=== PATIENT | female | born 1985 | race Caucasian/White ===

== ENCOUNTER 2018-04-25 10:47 | Emergency (ER) | payer OTHER ==
[~2018-04-25] VITALS: Ht 172.7 cm; Wt 159.1 kg
[2018-04-25] MEDS ORDERED: NS 1,000 ML IV ONE (11:00)
[2018-04-25] MEDS ORDERED: FAMOTIDINE IV BAG 20 MG in APPROPRIATE DILUENT 1 EA IV ONE (11:00)
[2018-04-25] MEDS ORDERED: PRED20TA PO (12:06)
[2018-04-25] MEDS ORDERED: PEPC1TAB5 PO (12:06)
[2018-04-25] MEDS ORDERED: BENA25CA4 PO (12:07)
[2018-04-25 12:20] VITALS: BP 130/65
== END 2018-04-25 12:27 | disposition home or self-care (01) ==
LOC: M ED 10:47 → EDBD 10:47 → M ED 12:27
DX: R21 Rash and other nonspecific skin eruption (principal); T78.49XA Other allergy, initial encounter; X58.XXXA Exposure to other specified factors, initial encounter; Y92.89 Other specified places as the place of occurrence of the external cause; Z79.899 Other long term (current) drug therapy; Z88.0 Allergy status to penicillin; Z91.048 Other nonmedicinal substance allergy status

== ENCOUNTER → 2018-07-19 | Outpatient (CLI) | payer OTHER ==
[~2018-07-19] MED LIST: BENA25CA4 PO; PEPC1TAB5 PO; PRED20TA PO
--- NOTE | 2018-07-19 16:04 | REP ---
Right foot four views: There is a nondisplaced fracture at the base of the fifth digit proximal phalange shaft. There is no dislocation. Mineralization and joint spaces otherwise are unremarkable. No calcifications or foreign bodies. Electronically Signed by Teo Jones MD 07/19/2018 03:55 P
== END ==
LOC: M LRY 15:35
PROVIDERS: ATTEND Nurse Practitioner Family
DX: S99.921A Unspecified injury of right foot, initial encounter (principal); W18.30XA Fall on same level, unspecified, initial encounter; Y92.009 Unspecified place in unspecified non-institutional (private) residence as the place of occurrence of the external cause

== ENCOUNTER → 2019-05-31 | Outpatient (CLI) | payer OTHER ==
--- NOTE | 2019-05-31 10:13 | REP ---
PA and lateral chest: There are no comparisons. The lung blackwell are clear. The cardiac size is normal. The tadeo, mediastinum, and skeletal structures are unremarkable. Impression: Negative PA and lateral chest. Electronically Signed by Teo Jones MD 05/31/2019 10:04 A
== END ==
LOC: M LRY 09:44
PROVIDERS: ATTEND Nurse Practitioner Family
DX: R09.89 Other specified symptoms and signs involving the circulatory and respiratory systems (principal)
CPT/HCPCS: 71046; G0463

== ENCOUNTER 2021-01-27 14:35 | Inpatient (IN) | payer OTHER ==
[~2021-01-27] VITALS: Ht 177.8 cm; Wt 147.3 kg
--- OUTSIDE RECORDS SUMMARY | 2021-01-27 14:39 | CCD ---
Author Author [facility] Organization [facility] Address Unknown Phone Unavailable Care Team Providers Care Phd Internship Name Role Phone Elma WALLACE CONVERSION DEVELOPER PRATEEK Unavailable [phone] MADISON, Dalton. CONVERSION DEVELOPER PRATEEK Unavailable [phone] MADISON, Dalton. CONVERSION DEVELOPER PRATEEK Unavailable [phone] MADISON, Dalton. CONVERSION DEVELOPER PRATEEK Unavailable [phone] MADISON, Dalton. CONVERSION DEVELOPER PRATEEK Unavailable [phone] MADISON, Dalton. CONVERSION DEVELOPER PRATEEK Unavailable [phone] MADISON, Dalton. CONVERSION DEVELOPER PRATEEK Unavailable [phone] MADISON, Dalton. CONVERSION DEVELOPER PRATEEK Unavailable [phone] MADISON, Dalton. CONVERSION DEVELOPER PRATEEK Unavailable [phone] MADISON, A. CONVERSION DEVELOPER PRATEEK Unavailable [phone] MADISON, Dalton. CONVERSION DEVELOPER PRATEEK Unavailable [phone] MADISON, Dalton. CONVERSION DEVELOPER PRATEEK Unavailable [phone] MADISON, Dalton. CONVERSION DEVELOPER PRATEEK Unavailable [phone] MADISON, Dalton. CONVERSION DEVELOPER PRATEEK Unavailable [phone] MADISON, Dalton. CONVERSION DEVELOPER PRATEEK Unavailable [phone] Re-disclosure Warning The records that you are about to access may contain information from federally-assisted alcohol or drug abuse programs. If such information is present, then the following federally mandated warning applies: This information has been disclosed to you from records protected by federal confidentiality rules (42 CFR part 2). The federal rules prohibit you from making any further disclosure of this information unless further disclosure is expressly permitted by the written consent of the person to whom it pertains or as otherwise permitted by 42 CFR part 2. A general authorization for the release of medical or other information is NOT sufficient for this purpose. The Federal rules restrict any use of the information to criminally investigate or prosecute any alcohol or drug abuse patient.The records that you are about to access may contain highly sensitive health information, the redisclosure of which is protected by Article 27-F of the [facility] Public Health law. If you continue you may have access to information: Regarding HIV / AIDS; Provided by facilities licensed or operated by the [facility] Office of Mental Health; or Provided by the [facility] Office for People With Developmental Disabilities. If such information is present, then the following [facility] mandated warning applies: This information has been disclosed to you from confidential records which are protected by state law. State law prohibits you from making any further disclosure of this information without the specific written consent of the person to whom it pertains, or as otherwise permitted by law. Any unauthorized further disclosure in violation of state law may result in a fine or mcfp sentence or both. A general authorization for the release of medical or other information is NOT sufficient authorization for further disc losure. Encounters Encounter Providers Location Date Indications Data Source(s ) Outpatient Attender: PRATEEK WALLACE 01/04 08:58:52 AM EDT - 01/13/2021 10:00:22 AM EDT [facility] ([facility] ) Medications No Information Insurance Providers Payer name Policy type / Coverage type Policy ID Covered alliance party ID Covered alliance party's relationship to haskins Policy Haskins Plan Information / [id number] Spouse [id number] [facility] [id number] [facility] [id number] SELF PAY ONLY SP ANSI-Not a Secondary Insurance [id number] ANSI-Not a Secondary Insurance [id number] [employer] - O/P [id number] 01 [id number] [facility] [id number] [facility] [id number] ANSI-Not a Secondary Insurance [id number] Problems, Conditions, and Diagnoses No Information Surgeries/Procedures No Information Results ID Date Data Source [id number] 01/13/2021 09:15:00 AM EDT KEVIN Name Value Range Interpretation Code Description Data Annelise rce(s) Supporting Document(s) SARS-CoV-2 RNA Resp Ql KASSANDRA+probe NOT DETECTED [facility] This lab was ordered by JOSE tovar and reported by JOSE Sadler. Procedure Social History No Information
[2021-01-27] MEDS ORDERED: KETOROLAC 30 MG/ML 1ML VIAL IV ONE ×2 (14:50→16:45)
[2021-01-27 15:14] LABS: BASO % 0.1 % (0.0-1.0); EOS # 0.1 10^3/uL (0.0-0.5); HEMATOCRIT 38.3 % (36.0-47.0); HEMOGLOBIN 12.5 g/dl (12.0-15.5); LYMPH % 8.1 % (24.0-44.0); MEAN CORPUSCULAR HEMOGLOBIN 29.1 pg (27.0-33.0); MEAN CORPUSCULAR HGB CONC 32.6 g/dl (32.0-36.5); MEAN CORPUSCULAR VOLUME 89.3 fl (80.0-96.0); MONO # 1.4 10^3/uL (0.0-0.8); MONO % 11.8 % (2.0-8.0); NEUTROPHILS # 9.4 10^3/uL (1.5-8.5); NEUTROPHILS % 78.7 % (36.0-66.0); PLATELET COUNT, AUTOMATED 188 10^3/uL (150-450); RED BLOOD COUNT 4.29 10^6/uL (4.00-5.40)
[2021-01-27] MEDS ORDERED: ISOVUE-370 76% 100ML VIAL As Ordered ONE (15:25)
[2021-01-27 15:32] LABS: ERYTHROCYTE SEDIMENTATION RATE 37 mm/hr (0-20)
--- OUTSIDE RECORDS SUMMARY | 2021-01-27 15:39 | CCD ---
Author Author [facility] Organization [facility] Address Unknown Phone Unavailable Care Team Providers Care Fisheries Technician Name Role Phone Elma WALLACE MANGANESE HEATER PRATEEK Unavailable [phone] MADISON, Dalton. MANGANESE HEATER PRATEEK Unavailable [phone] MADISON, Dalton. MANGANESE HEATER PRATEEK Unavailable [phone] MADISON, Dalton. MANGANESE HEATER PRATEEK Unavailable [phone] MADISON, Dalton. MANGANESE HEATER PRATEEK Unavailable [phone] MADISON, Dalton. MANGANESE HEATER PRATEEK Unavailable [phone] MADISON, Dalton. MANGANESE HEATER PRATEEK Unavailable [phone] AMDISON, Dalton. MANGANESE HEATER PRATEEK Unavailable [phone] MADISON, Dalton. MANGANESE HEATER PRATEEK Unavailable [phone] MADISON, A. MANGANESE HEATER PRATEEK Unavailable [phone] MADISON, Dalton. MANGANESE HEATER PRATEEK Unavailable [phone] MADISON, Dalton. MANGANESE HEATER PRATEEK Unavailable [phone] MADISON, Dalton. MANGANESE HEATER PRATEEK Unavailable [phone] MADISON, Dalton. MANGANESE HEATER PRATEEK Unavailable [phone] MADISON, Dalton. MANGANESE HEATER PRATEEK Unavailable [phone] Re-disclosure Warning The [...] is protected by Article 27-F of the [facility] Public Health law. If you continue you may have access to information: Regarding HIV / AIDS; Provided by facilities licensed or operated by the [facility] Office of Mental Health; or Provided by the [facility] Office for People With Developmental Disabilities. If such information is present, then the following [facility] mandated warning applies: This information has been [...] law may result in a fine or nursing home sentence or both. A general authorization for [...] type / Coverage type Policy ID Covered republican ID Covered republican's relationship to haskins Policy Haskins Plan Information / [id number] Spouse [id number] [facility] [id number] [facility] [id number] SELF PAY ONLY SP ANSI-Not a Secondary Insurance [id number] ANSI-Not a Secondary Insurance [id number] [employer] - O/P [id number] 01 [id number] [facility] [id number] [facility] [id number] ANSI-Not a Secondary Insurance [id number] Problems, Conditions, and Diagnoses No Information Surgeries/Procedures No Information Results ID Date Data Source [id number] 01/13/2021 09:15:00 AM EDT KEVIN Name Value Range Interpretation Code Description Data Annelise rce(s) Supporting Document(s) SARS-CoV-2 RNA Resp Ql KASSANDRA+probe NOT DETECTED [facility] This lab was ordered by JOSE tovar and reported by JOSE Sadler. Procedure Social History No Information
[2021-01-27 15:48] LABS: ALBUMIN 3.1 GM/DL (3.2-5.2); ALT/SGPT 97 U/L (12-78); BILIRUBIN,DIRECT 0.6 MG/DL (0.0-0.2); BILIRUBIN,TOTAL 1.2 MG/DL (0.2-1.0); LIPASE 54 U/L (73-393); NT-PRO BNP 254 PG/ML (<125); THYROID STIMULATING HORMONE 0.496 uIU/ML (0.358-3.740)
--- NOTE | 2021-01-27 15:55 | REP ---
INDICATION: CHEST PAIN. COMPARISON: PA and lateral chest, 05/31/2019. TECHNIQUE: Upright AP portable chest image was obtained. FINDINGS: There is cardiomegaly, pulmonary venous hypertension and pulmonary interstitial edema consistent with mild congestive heart failure. There are no pleural effusions. IMPRESSION: Mild congestive heart failure. <Electronically signed by Kishore Li > 01/27/21 [id number]
--- NOTE | 2021-01-27 16:22 | REP ---
INDICATION: CP. COMPARISON: None. TECHNIQUE: Imaging protocol: CT angiography of the chest with IV contrast. Contiguous 3 mm thick axial projection images were obtained through the chest. 2D sagittal and coronal reconstructions were performed. Radiation optimization: All CT scans at this facility use at least one of these dose optimization techniques: automated exposure control; mA and/or kV adjustment per patient size (includes targeted exams where dose is matched to clinical indication); or iterative reconstruction. Contrast: 75 cc of Isovue 370 intravenous FINDINGS: Lower neck: There is a coarse calcification in the left thyroid lobe. There is no supraclavicular lymphadenopathy. Mediastinum: There are few, not pathologically enlarged, mediastinal lymph nodes. Heart/thoracic aorta/pulmonary arterial tree: The heart size is upper limits of normal. There is a large pericardial effusion. There is minimal calcific vascular disease of the thoracic aorta. There is no evidence of thoracic aortic dissection or thoracic aortic aneurysm. There is no evidence of pulmonary emboli. Upper abdomen: The spleen is enlarged measuring 14.4 cm in axial dimension. Thoracic esophagus: Normal. Chest wall and axilla: The breast soft tissues of the chest wall appear unremarkable. There is no axillary lymphadenopathy. There is mild multilevel degenerative disc disease of the thoracic spine with mild dextroscoliosis. Lung parenchyma: There is linear atelectasis or scarring in the posterior basilar segment of the lower lobe of the right lung the posterior basilar, lateral basilar and anteromedial basilar segments of the lower lobe of the left lung and the inferior segment of the lingula. There are no pleural effusions. IMPRESSION: 1. Multifocal atelectasis or scarring in both lower lobes and in the lingula. 2. No evidence of pulmonary emboli. 3. Mild splenomegaly. 4. Thoracic degenerative disc disease with dextroscoliosis. 5. Other findings as noted. <Electronically signed by Kishore Li > 01/27/21 [id number]
[2021-01-27] MEDS ORDERED: ACETAMINOPHEN 500 MG TAB PO ONE (17:30)
--- NOTE | 2021-01-27 17:40 | REP ---
INDICATION: elevated LFT'S/pain. COMPARISON: None. TECHNIQUE: Multiple ultrasound images of the abdomen were obtained. FINDINGS: The liver is normal in size and echogenicity. The gallbladder is normal. The common bile duct measures 4 mm in diameter. Limited images of the pancreas are unremarkable. The right kidney measures 12.9 x 5.9 x 4.5 cm. The renal parenchymal echogenicity is normal. There are no focal abnormalities. There is no evidence of hydronephrosis. IMPRESSION: Normal right upper quadrant ultrasound. <Electronically signed by Kishore Li > 01/27/21 [id number]
--- NOTE | 2021-01-27 17:51 | ECGEPIP ---
[facility] - ED Test Date: 2021-01-27 Pat Name: EAN TRISTAN Department: Room: - Gender: Female Taxi Servicer: ASAD : 1985 Requested By: Margo Wood Order Number: [id number] Reading MD: Margo Wood Measurements Intervals Edward Rate: 114 P: 45 [place]: 118 QRS: 34 QRSD: 88 T: 31 QT: 300 QTc: 413 Interpretive Statements Sinus tachycardia baseline artifact may affect interpretation NSTTW abnormalities No prior Electronically Signed on 01-27-2021 17:51:25 EDT by Margo Wood
[2021-01-27] MEDS ORDERED: cefTRIAXone SOD 2 GM in D5W MINI-BAG PLUS 50 ML IV ONE (18:10)
[2021-01-27] MEDS ORDERED: VANCOMYCIN HCL 2,000 MG in D5W 500 ML IV ONE (18:10)
[2021-01-27 18:18] LABS: RSV AMPLIFICATION NEGATIVE (NEGATIVE)
[2021-01-27] MEDS ORDERED: VANCOMYCIN HCL 1,000 MG, VIAL MATE ADAPTER 1 EACH in NS 250 ML IV ONE ×3 (18:20→22:00)
[2021-01-27] MEDS ORDERED: D31000TA2 PO (18:37)
[2021-01-27] MEDS ORDERED: B-12100010 PO (18:37)
[2021-01-27] MEDS ORDERED: CALC600T61 PO (18:37)
[2021-01-27] MEDS ORDERED: HOME MED LIST COMPLETE! XX SCH (18:40)
[2021-01-27] MEDS ORDERED: BISACODYL 10 MG SUPP PR PRN (20:05)
[2021-01-27] MEDS ORDERED: ACETAMINOPHEN TAB 650MG DOSE (2X325MG) PO PRN (20:05)
[2021-01-27] MEDS ORDERED: LEVALBUTEROL 1.25 MG/0.5 ML CONCENTRATE NEB NEB PRN (20:05)
[2021-01-27] MEDS ORDERED: NORCO, ANEXSIA 5/325MG TABLET (HYDROcodone/ACETAMINOPHEN) PO PRN (20:05)
[2021-01-27] MEDS ORDERED: ONDANSETRON 4MG/2ML VIAL IV PRN (20:05)
[2021-01-27] MEDS ORDERED: COLCHICINE 0.6 MG TABLET PO ONE (20:05)
[2021-01-27] MEDS ORDERED: PERCOCET 5MG/325MG TAB PO PRN ×2 (20:05)
--- OUTSIDE RECORDS SUMMARY | 2021-01-27 20:37 | CCD ---
Author Author [facility] Organization [facility] Address Unknown Phone Unavailable Care Team Providers Care Chef Broiler Or Fry Name Role Phone Elma WALLACE ORDERING BOX OPERATOR PRATEEK Unavailable [phone] MADISON, Dalton. ORDERING BOX OPERATOR PRATEEK Unavailable [phone] MADISON, Dalton. ORDERING BOX OPERATOR PRATEEK Unavailable [phone] MADISON, Dalton. ORDERING BOX OPERATOR PRATEEK Unavailable [phone] MADISON, Dalton. ORDERING BOX OPERATOR PRATEEK Unavailable [phone] MADISON, Dalton. ORDERING BOX OPERATOR PRATEEK Unavailable [phone] MADISON, Dalton. ORDERING BOX OPERATOR PRATEEK Unavailable [phone] MADISON, Dalton. ORDERING BOX OPERATOR PRATEEK Unavailable [phone] MADISON, Dalton. ORDERING BOX OPERATOR PRATEEK Unavailable [phone] MADISON, A. ORDERING BOX OPERATOR PRATEEK Unavailable [phone] MADISON, Dalton. ORDERING BOX OPERATOR PRATEEK Unavailable [phone] MADISON, Dalton. ORDERING BOX OPERATOR PRATEEK Unavailable [phone] MADISON, Dalton. ORDERING BOX OPERATOR PRATEEK Unavailable [phone] MADISON, Dalton. ORDERING BOX OPERATOR PRATEEK Unavailable [phone] MADISON, Dalton. ORDERING BOX OPERATOR PRATEEK Unavailable [phone] Re-disclosure Warning The [...] is protected by Article 27-F of the [facility] Public Health law. If you continue you may have access to information: Regarding HIV / AIDS; Provided by facilities licensed or operated by the [facility] Office of Mental Health; or Provided by the [facility] Office for People With Developmental Disabilities. If such information is present, then the following [facility] mandated warning applies: This information has been [...] law may result in a fine or mcc sentence or both. A general authorization for [...] type / Coverage type Policy ID Covered democrat ID Covered democrat's relationship to haskins Policy Haskins Plan Information / [id number] Spouse [id number] [facility] [id number] [facility] [id number] SELF PAY ONLY SP ANSI-Not a Secondary Insurance [id number] ANSI-Not a Secondary Insurance [id number] [employer] - O/P [id number] [facility] [id number] [facility] [id number] ANSI-Not a Secondary Insurance [id number] Problems, Conditions, and Diagnoses No Information Surgeries/Procedures No Information Results ID Date Data Source [id number] 01/13/2021 09:15:00 AM EDT KEVIN Name Value Range Interpretation Code Description Data Annelise rce(s) Supporting Document(s) SARS-CoV-2 RNA Resp Ql KASSANDRA+probe NOT DETECTED [facility] This lab was ordered by JOSE tovar and reported by JOSE Sadler. Procedure Social History No Information
[2021-01-27 20:53] LABS: RHEUMATOID FACTOR QUANT < 10.0 IU/ML (<15.0)
[2021-01-27] MEDS: DOCUSATE SODIUM 100MG CAPSULE PO SCH (21:00)
[2021-01-27 21:05] VITALS: BP 131/76
--- NOTE | 2021-01-27 21:25 | ECHO ---
ECHOCARDIOGRAM DATE OF PROCEDURE: 01/27/2021 Age: 35 Gender: Female Height: 70 inches Weight: 298 pounds Body Surface Area: 2.47 m2 PATIENT LOCATION: Emergency room REFERRING PHYSICIAN: Margo Cotter M.D., Ankit Olivo M.D. and Panchito Sharpe M.D. INDICATION: Pericardial effusion. MEASUREMENTS: 2D Measurements: RV - 4.4 cm LV - 5.7 cm Septum 0.9 cm Posterior wall 0.9 cm Aortic root 3.1 cm LA - 4.4 cm LVEF 50%. Doppler Measurements: AV - 1.85 m/sec LVOT - 1.43 m/sec MV-E 104, A 85, EA ratio 1.2 Early mitral deceleration time 232 msec E prime medial 10 A prime medial 16 E prime lateral 10 Average E/E ratio 10.4/PCWP 14.8 mmHg PV - 1.35 m/sec Pulmonary artery acceleration time 60 msec PASP 54 mmHg IVC - 2.6 cm COMMENTS: Sinus tachycardia without intraventricular conduction disturbance. Somewhat challenging study in light of the patient's body habitus, but diagnostically useful information was still obtained. M-mode and 2-dimensional cardiography was performed with pulse, continuous wave, color flow and tissue Doppler studies. At least mildly dilated left ventricle with normal wall thickness and slight degree of global hypokinesis. At least mildly dilated left atrium with prolonged early mitral deceleration time, but normal filling pattern and current estimated mean left atrial pressure upper limits of normal. Mildly dilated right heart chambers with normal right ventricular free wall motion and Doppler sign of at least moderate pulmonary hypertension. Moderately dilated inferior vena cava (IVC) with absent respiratory collapse in keeping with an elevated central venous pressure. Normal aortic dimensions. Normal appearing and functioning valvular structures. No apparent intracardiac mass. Moderate size pericardial effusion measuring 0.8 cm with some diastolic inversion of the right atrial free wall, but no other cardiac chamber compression. Pulse Doppler study of left ventricular (LV) and right ventricular (RV) inflow tracts fail to demonstrate significant respiratory variation to suggest cardiac compression (no Doppler sign of increased ventricular interdependence). There was no pendular swinging of the heart. A preliminary report of this study was related to Dr. Olivo and Dr. Sharpe. The above features would not be consistent with decompensated cardiac compression, especially considering the patient is hypertensive. The diagnosis of cardiac tamponade is a clinical one with crucial feature being pulses paradox Greater than 10-12 mmHg. Close monitoring would still be advised. MTDD
--- NOTE | 2021-01-27 21:34 | HPEPDOC ---
[facility] Medical History & Physical Date of Admission Jan 27, 2021 Date of Service: Jan 27, 2021 History and Physical CHIEF COMPLAINT: Fever HISTORY OF PRESENT ILLNESS: 35F with obestiy presents because of a two days history of fever associated with chest pain. Says fever was 101 at home. She's tried ibuprofen and Tylenol which haven't helped. Chest pain is persistent substernal and radiates to her back. She's had similar pain in the past which she believes was inflammation helped with ibuprofen and rest. This feels different, its worsened by deep breaths and alleviated by change in position, leaning backwards sometimes makes it worse. She denies associated palpitations, denies any shortness of breath except some times when she lays down. Endorses fatigue. Denies any rash, night sweats, nausea, vomiting, hematuria. Denies knowing if she's had a strep infection in the past. Denies having any heart surgery, denies any IV drug use any point in the past. CT initially suggestive of large pericardial effusion, reviewed by CT surgery Dr Sharpe looks moderate. Stat echo was ordered in the ED read by Dr Kennedy confirms moderate effusion with no evidence of cardiac compression. Patient admitted to the PCU with presumed diagnosis of infective endocarditis/pericarditis until proven otherwise. She will undergo medical workup and management. PAST MEDICAL/SURGICAL HISTORY: Denies medical history Class 3 obesity tubal ligation SOCIAL HISTORY: Denies alcohol use Denies tobacco use Denies illicit drug use. Only history of drug use was cannabis when she was much younger. Denies IV drug use. 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 REVIEW OF SYSTEMS: 10 point review of systems complete all negative otherwise stated in HPI Constitutional: No sweating. weight loss ~ 100 pounds over past 2-3 years. Eyes: No eye pain or acute blurred vision HENT: No complaints of headache or sore throat Cadiovascular: per HPI Pulm: No SOB or cough Gastrointestinal: No N/V, no abdominal pain. Genitourinary: No dysuria or hematuria Musculoskeletal: No back pain or joint pain Skin: No rash or jaundice Neurological: No weakness. HOME MEDICATIONS: Please see below. PHYSICAL EXAMINATION: Constitutional: Awake and alert, in no apparent distress ENT: Sclera are clear. Mucosa is moist. Respiratory: Lungs CTA bilaterally. No respiratory distress. No use of accessory muscles. Cardiovascular: Rate 118 on monitor. Sounds regular. S1 and S2 are normal, no obvious murmur. EKG showing sinus tachycardia. Gastrointestinal: Abdomen is soft, non distended, non tender, BS present. Musculoskeletal: No lower extremity edema. RUE 5/5, LUE 5/5, BLE 5/5 Neurologic: No focal neurological deficit. Mental Status: A&O x3, normal affect Skin: Warm, dry, no petechiae, no splinter hemorrhages, no Janeway lesions or Osler nodes. LABORATORY DATA: See below. IMAGING: See chart MICROBIOLOGY: Please see below. ASSESSMENT/PLAN 35F with obestiy presents because of a two days history of fever associated with chest pain admitted for presumed diagnosis of infective endocarditis/pericarditis until proven otherwise. She will undergo medical workup and management. # Fever and chest pain; - etiology not yet known. presumed endocarditis / pericarditis until proven otherwise. - Treating for presumed endocarditis with IV Ceftriaxone and Vancomycin - scheduled IV ketorolac, colchicine to cover for pericarditis - Stat echo brief verbal read from Dr Kennedy showing no cardiac compression, moderate pleural effusion. Given findings discussed with CT surgery Dr Sharpe no need to acute surgical intervention tonight. Will monitor closely in PCU on tele. - Will probably need PEPE, depending on results of TTE once official report is back. - Will defer to day team to consult and discuss with ID Dr Gallardo once she's on service tomorrow - workup to investigate other etiologies; DISHA, rheumatoid factor. TSH wnl. ESR elevated 37. - IV zofran for n/v - yony tops and EKGs # DVT prophylaxis: heparin A Yousef Hospitalist Vital Signs Vital Signs Date Time Temp Pulse Resp B/P (MAP) Pulse Ox O2 Delivery O2 Flow Rate FiO2 01/27/21 20:22 100.3 114 16 188/84 (118) 96 Room Air Laboratory Data Labs 24H Laboratory Tests 2 01/27/21 15:02: Immature Granulocyte % (Auto) 0.3, Neutrophils (%) (Auto) 78.7H, Lymphocytes (%) (Auto) 8.1L, Monocytes (%) (Auto) 11.8H, Eosinophils (%) (Auto) 1.0, Basophils (%) (Auto) 0.1, Neutrophils # (Auto) 9.4H, Lymphocytes # (Auto) 1.0L, Monocytes # (Auto) 1.4H, Eosinophils # (Auto) 0.1, Basophils # (Auto) 0.0, Nucleated Red Blood Cells % (auto) 0.0, Erythrocyte Sedimentation Rate 37H, Total Bilirubin 1.2H, Direct Bilirubin 0.6H, Aspartate Amino Transf (AST/SGOT) 61H, Alanine Ami notransferase (ALT/SGPT) 97H, Alkaline Phosphatase 112, KP-Gor-E-Type Natriuretic Peptide 254H, Total Protein 7.0, Albumin 3.1L, Albumin/Globulin Ratio 0.8L, Lipase 54L, Thyroid Stimulating Hormone (TSH) 0.496 01/27/21 15:04: POC Glucose (Misc Panel) 114H, POC Sodium (Misc Panel) 138, POC Potassium (Misc Panel) 3.9, POC Chloride (Misc Panel) 103, POC Total CO2 (Misc Panel) 23.0, POC Blood Urea Nitrogen (Misc Panel 10, POC Ionized Calcium (Misc Panel) 4.6, POC Creatinine (Misc Panel) 0.5L, POC Hematocrit (Misc Panel) 37.0L 01/27/21 15:08: POC Troponin I (Misc) 0.00 01/27/21 17:31: Coronavirus (COVID-19)(PCR) NEGATIVE, Influenza Type A (RT-PCR) NEGATIVE, Influenza Type B (RT-PCR) NEGATIVE, Respiratory Syncytial Virus (PCR) NEGATIVE 01/27/21 18:30: Lactic Acid Level 0.9 CBC/BMP Laboratory Tests 01/27/21 15:02 Microbiology Microbiology 01/27/21 Blood Culture, Received Pending 01/27/21 Blood Culture, Received Pending Home Medications Scheduled Calcium Carbonate (Calcium) 600 Mg Tablet, 600 MG PO DAILY Cholecalciferol (Vitamin D3) (Vitamin D3) 1,000 Unit Tablet, 1,000 UNITS PO DAILY Cyanocobalamin (Vitamin B-12) (Vitamin B-12) 1,000 Mcg Capsule, 1,000 MCG PO DAILY Allergies Coded Allergies: Penicillins (Verified Allergy, Unknown, hives, 01/27/21) TAPE (Verified Allergy, Unknown, SILK TAPE, 04/25/18) NICIK MARTINEZ MD Jan 27, 2021 20:36
[2021-01-27] MEDS: KETOROLAC 30 MG/ML 1ML VIAL IV SCH (22:54)
[2021-01-27] MEDS: HEPARIN SOD (PORCINE) 5000UNITS/ML 1ML VIAL/SYRINGE SC SCH ×2 (22:55→23:01)
[2021-01-28] VITALS (7 sets, daily range): BP systolic 120–138; BP diastolic 56–87
[2021-01-28] MEDS: KCL 20MEQ IN D5/NS 1000ML 1,000 ML IV SCH ×2 (00:07→09:01)
[2021-01-28] MEDS ORDERED: VANCOMYCIN HCL 1,000 MG, VIAL MATE ADAPTER 1 EACH in NS 250 ML IV SCH ×2 (04:00→10:00)
[2021-01-28] MEDS: KETOROLAC 30 MG/ML 1ML VIAL IV SCH ×4 (04:03→21:41)
[2021-01-28 05:59] LABS: BASO % 0.2 % (0.0-1.0); EOS # 0.1 10^3/uL (0.0-0.5); EOS % 1.2 % (0.0-3.0); HEMATOCRIT 34.2 % (36.0-47.0); HEMOGLOBIN 11.1 g/dl (12.0-15.5); LYMPH # 1.1 10^3/uL (1.5-5.0); LYMPH % 10.4 % (24.0-44.0); MEAN CORPUSCULAR HEMOGLOBIN 29.1 pg (27.0-33.0); MEAN CORPUSCULAR HGB CONC 32.5 g/dl (32.0-36.5); MEAN CORPUSCULAR VOLUME 89.5 fl (80.0-96.0); MONO # 1.3 10^3/uL (0.0-0.8); MONO % 11.9 % (2.0-8.0); NEUTROPHILS # 8.2 10^3/uL (1.5-8.5); NEUTROPHILS % 75.7 % (36.0-66.0); PLATELET COUNT, AUTOMATED 176 10^3/uL (150-450); RED BLOOD COUNT 3.82 10^6/uL (4.00-5.40); WHITE BLOOD COUNT 10.8 10^3/uL (4.0-10.0)
[2021-01-28 06:17] LABS: BLOOD UREA NITROGEN 12 MG/DL (7-18); CALCIUM LEVEL 7.9 MG/DL (8.5-10.1); CARBON DIOXIDE LEVEL 23 MEQ/L (21-32); CHLORIDE LEVEL 108 MEQ/L (98-107); CREATININE FOR GFR 0.63 MG/DL (0.55-1.30); GLOMERULAR FILTRATION RATE > 60.0 (>60); GLUCOSE, FASTING 104 MG/DL (70-100); POTASSIUM SERUM 3.9 MEQ/L (3.5-5.1); SODIUM LEVEL 140 MEQ/L (136-145)
[2021-01-28 06:29] LABS: AMPHETAMINES LEVEL URINE NEGATIVE (NEGATIVE); BARBITURATES URINE NEGATIVE (NEGATIVE); BENZODIAZEPINES URINE NEGATIVE (NEGATIVE); CANNABINOIDS URINE NEGATIVE (NEGATIVE); COCAINE METABOLITE URINE NEGATIVE (NEGATIVE); METHADONE URINE NEGATIVE (NEGATIVE); OPIATES URINE POSITIVE (NEGATIVE); PHENCYCLIDINE URINE NEGATIVE (NEGATIVE)
[2021-01-28] MEDS: LEVALBUTEROL 1.25 MG/0.5 ML CONCENTRATE NEB NEB SCH ×2 (07:51→13:06)
[2021-01-28] MEDS: DOCUSATE SODIUM 100MG CAPSULE PO SCH ×2 (08:59→20:56)
[2021-01-28] MEDS: MOM 30ML SUSPENSION UDC PO SCH (08:59)
[2021-01-28] MEDS: PANTOPRAZOLE 40MG TAB (PROTONIX) PO SCH (09:00)
[2021-01-28] MEDS: HEPARIN SOD (PORCINE) 5000UNITS/ML 1ML VIAL/SYRINGE SC SCH ×2 (09:00→20:57)
--- NOTE | 2021-01-28 09:21 | REP ---
INDICATION: pericardial effusion. COMPARISON: 01/27/2021 the latest prior a portable exam and two view examination of 05/31/2019 TECHNIQUE: PA and lateral FINDINGS: The heart is enlarged and somewhat flask shaped in appearance. It has increased from the 05/31/2019 exam and is essentially unchanged from the 01/27/2021 exam. There is pulmonary vascular redistribution status quo. There is a diffuse haziness throughout the pulmonary vascularity without evidence of a patchy opacity or tico pleural effusion. There is no change in the osseous structures. IMPRESSION: There is cardiomegaly as described above. It should be stated that CT of the chest of 01/27/2021 showed a pericardial effusion. The degree of an effusion cannot be accurately assessed by plain radiography. If clinically relevant follow-up with chest CT so it can be compared to the prior chest CT. There is evidence of mild interstitial edema. <Electronically signed by Dar Burnham > 01/28/21 0900
--- NOTE | 2021-01-28 11:45 | REP ---
INDICATION: calcification seen on CT of left thyroid. COMPARISON: CT chest 01/27/2021. TECHNIQUE: Real-time sonographic evaluation of thyroid performed. FINDINGS: Right lobe of thyroid measures 4.7 x 2.1 x 2.3 cm. Left lobe of the thyroid measures 7.2 x 1.8 x 1.6 cm. There is a hypoechoic solid nodule in the left lower pole containing macro calcifications. It measures 1.7 x 1.0 x 1.2 cm. IMPRESSION: Solid nodule containing macro calcifications in the lower pole left lobe of thyroid. Ultrasound-guided FNA is recommended. <Electronically signed by Teo Jon > 01/28/21 1148
[2021-01-28] MEDS: COLCHICINE 0.6 MG TABLET PO SCH (11:54)
--- NOTE | 2021-01-28 12:49 | CR ---
CONSULTATION DATE: 01/28/2021 REQUESTING PHYSICIAN: Patient is seen at the request of the Emergency Room, Dr. Cotter and the Hospitalist Service. REASON FOR CONSULTATION: Pericardial effusion. HISTORY OF PRESENT ILLNESS: The patient is a 35-year-old white female who on Thursday two days prior to admission started to develop pressure type chest pain over the precordium. It also was pleuritic in nature in that when she took a deep breath she got a catch as she was breathing. This was more sharp. She states that the pain radiated to her back. The day prior to the sensation she was preparing for a move to [place], [place] and loading a truck and cleaning. She figured that it was basically a muscle strain. However, by Thursday the pain had not gotten any better and in fact it was getting worse and she therefore sought medical attention. She is not intrinsically short of breath but cannot catch her breath because she cannot take a full breath because of the pleuritic type chest pain. She states she has felt hot and feverish over the last few days. In the Emergency Room, her temperature was indeed elevated to 101.7. Approximately two weeks ago she had a cough without sputum production. She may have felt a little bit chilly but certainly there was no rigor. The cough lasted four about five days and then cleared spontaneously. There were no fevers or sweats at that point in time and in the last few days she denies fever, chills or sweats. She has lost 150 pounds by dieting over the past three years and is continuing to do so. As stated before, she is not intrinsically short of breath. There is no dysphagia. At this time, there is no cough or sputum production. PAST MEDICAL HISTORY: None other than obesity for which she is losing weight by diet alone. MEDICATIONS: Various vitamins. PAST SURGICAL HISTORY: Tubal ligation. ALLERGIES: Penicillin and tape. HABITS: Does not smoke. Denies alcohol use. There are no illicit drugs. 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 EXPOSURES: She has two Hebrew Shepherds and a cat, no birds. No exposure to tuberculosis. TRAVEL HISTORY: She has been to [place] for four days in the remote past. She also has been to [place] and here in [facility]. She has traveled to [place]. She states that she got a cold when she was last in [place] last year. No other foreign travel. REVIEW OF SYSTEMS: Constitutional: See HPI. Eyes without diplopia, without amaurosis fugax, without prior jaundice. Nose without epistaxis. Mouth: She has lost all of her teeth through both trauma and supposedly calcium depletion secondary to . Respiratory: See HPI. Cardiac: Does complain of tachycardia and palpitations in the last few days. No prior history of myocardial infarction or intermittent claudication. No peripheral edema. Denies orthopnea or paroxysmal nocturnal dyspnea. GI: Without nausea, vomiting, diarrhea, constipation, melena, hematochezia, hematemesis or abdominal pain. : Without dysuria or hematuria, or history of renal stones. Endocrine: Without diabetes, without thyroid disease. Neurologic: Without paresthesias, paralyses or prior seizures. Psychiatric: Without pathological anxiety, depression or psychoses. PHYSICAL EXAMINATION: GENERAL: Well-developed obese white female in no acute distress lying comfortably. VITAL SIGNS: Temperature this morning is 98.6 with a heart rate of 99 and a respiratory rate of 16 without the use of accessory muscles who is 98% saturated on room air. His blood pressure is 123/80. There is no pulsus paradoxus. As noted in the history of present illness, she did have an elevated temperature yesterday in the Emergency Room of 101.7. HEENT: Eyes pupils equal and reactive to light. Extraocular motions are intact. Sclera is nonicteric. Nose without deformity. Mouth is edentulous. Mucous membranes are pink and moist. Lips and commissures without lesions. There is no thrush. NECK: Supple. There is no jugular venous distention. No subcutaneous emphysema. Trachea is midline. There is no lymphadenopathy or thyromegaly. She has 2+ carotid upstrokes without bruits. LUNGS: Equal breath sounds on either side without wheezes, rhonchi or rales. Percussion note is full to the diaphragm. CARDIAC: Tachycardia without murmurs, clicks, gallops or rubs. I cannot feel her PMI. BREAST EXAM: Dominant mass in the upper portion of her breast above the nipple. ABDOMEN: Soft and nontender except for the right upper quadrant which is tender to deep palpation. Bowel sounds are positive. There is no CVA tenderness or hepatomegaly that I can tell through her obesity. EXTREMITIES: No pretibial edema. No calf tenderness. No differential swelling of the upper extremities. Her legs have increased adipose tissue but no true edema. LYMPHATICS: No cervical, supraclavicular, infraclavicular or axillary lymphadenopathy. SKIN: Warm, dry and perfused without cyanosis or mottling including that of nailbeds and knees. NEUROLOGIC: Cranial nerves II-XII intact. Normal gross motor and gross sensation intact. Gait is not tested. PSYCHIATRIC: She is awake and alert, oriented x3, with appropriate mood and affect, and conversational. LABORATORY DATA: Her white count yesterday in the Emergency Room was 12.0 and it was 10.8 today. Hemoglobin and hematocrit is 11.1 and 34.2, down from 12.5 and 38.3 yesterday. Her intake is greater than her output for positivity since admission of 800 ml. That may explain the drop in hemoglobin and hematocrit. Platelet count is 176,000 and her differential shows 75% neutrophils, 10% lymphocytes and 11% monocytes. There are no immature forms or toxic granulations. Her chemistries this morning shows normal electrolytes with BUN and creatinine of 12 and 0.63. TSH yesterday was 0.496 within normal limits. AST and ALT are both elevated at 61 and 97 respectively. Her urinalysis is negative for blood but positive for urine and urobilinogen. Her total bilirubin is slightly elevated at 1.2 but with a normal alkaline phosphatase. Ionized calcium was 4.6 yesterday and her albumin is 3.1. Lactic acid yesterday was only 0.9. Her rheumatoid arthritis is less than 10 and her DISHA screen is pending. Her chest x-ray done today shows the lung is fully expanded to the chest wall with sharp costophrenic angles. The heart is slightly globular with a straight left heart border. The right atrium shows a normal configuration. There are no posterior infiltrates. CT scan done yesterday shows a small concentric pericardial effusion. It is 1.2 cm in its greatest dimension anteriorly. There are no masses in her lungs. There is minimal if any mediastinal lymphadenopathy. She has a rather enlarged liver which may be hypodense but certainly is not cirrhotic. Left adrenal has normal configuration as does the right adrenal. That portion of the gallbladder that is visualized has no stones in it. I have reviewed her echocardiogram. It shows no compression of the right atrium or ventricle. Her IVC is not dilated measuring 1.2 cm. The bulb packer of the echocardiogram, Dr. Kennedy, yesterday did think that she had a moderately dilated inferior vena cava. There was no respiratory collapse. There is no respiratory variation in the Doppler of the mitral valve. IMPRESSION: Pericarditis, unknown etiology at this point in time. When I was called yesterday with a fever I asked them to assume that it was bacterial although looking at her now clinically this does not look to be a bacterial pericarditis and I have recommended that antibiotics be stopped. Her DISHA is pending but rheumatoid factor is negative. She did have a viral syndrome two weeks ago and this may very well be by exclusion of a viral pericarditis. I do not that she had a right upper quadrant ultrasound of her gallbladder which was felt to be normal with normal echogenicity of the liver. It should be noted that on her CT scan she looks to have a dominant mass in the right breast and also on physical examination and I have recommended a mammogram. I do not think however this pleural effusion is malignant. She does have moderate pulmonary hypertension which was estimated to be about 54 mmHg. Her ejection fraction is only 50%. There is no tricuspid or mitral regurgitation. While the rheumatology workup is pending, I think by exclusion this is going to represent a viral pericarditis. I started her on Colchicine last night on admission to be given once a day. I also put her Toradol for her pain and anti-inflammatory properties. I do not have a good explanation for her hyperbilirubinemia or her increased urobilinogen. There is no blood in her urine. She is negative for leukocyte esterase. She is planning to travel to [place] as they are changing post in the . I recommend that she stay in the area for one to two weeks to make sure the pericardial effusion is not going to any get any worse. I would also recommend consulting Cardiology. The Hospitalist Service will undertake that consultation for outpatient follow-up. For the present, there is no need for surgical intervention.
--- NOTE | 2021-01-28 17:58 | IPNPDOC ---
Date Seen The patient was seen on 01/28/21. Progress Note SUBJECTIVE: Still tachycardic, febrile overnight with T max 101.7. Admits to some palpitations; however, no documented arrhythmias on tele. OBJECTIVE PHYSICAL EXAMINATION: Constitutional: Awake and alert, in no apparent distress ENT: Sclera are clear. Mucosa is moist. Respiratory: Lungs CTA bilaterally. No respiratory distress. No use of accessory muscles. Cardiovascular: Rate 118 on monitor. Sounds regular. S1 and S2 are normal, no obvious murmur. EKG showing sinus tachycardia. Gastrointestinal: Abdomen is soft, non distended, non tender, BS present. Musculoskeletal: No lower extremity edema. RUE 5/5, LUE 5/5, BLE 5/5 Neurologic: No focal neurological deficit. Mental Status: A&O x3, normal affect Skin: Warm, dry, no petechiae, no splinter hemorrhages, no Janeway lesions or Osler nodes. LABORATORY DATA: See below. IMAGING: Thyroid US: Solid nodule containing macro calcifications in the lower pole left lobe of thyroid. Ultrasound-guided FNA is recommended. Echocardiogram 01/27/21: Sinus tachycardia without intraventricular conduction disturbance. Somewhat challenging study in light of the patient's body habitus, but diagnostically useful information was still obtained. M-mode and 2-dimensional cardiography was performed with pulse, continuous wave, color flow and tissue Doppler studies. At least mildly dilated left ventricle with normal wall thickness and slight degree of global hypokinesis. At least mildly dilated left atrium with prolonged early mitral deceleration time, but normal filling pattern and current estimated mean left atrial pressure upper limits of normal. Mildly dilated right heart chambers with normal right ventricular free wall motion and Doppler sign of at least moderate pulmonary hypertension. Moderately dilated inferior vena cava (IVC) with absent respiratory collapse in keeping with an elevated central venous pressure. Normal aortic dimensions. Normal appearing and functioning valvular structures. No apparent intracardiac mass. Moderate size pericardial effusion measuring 0.8 cm with some diastolic inversion of the right atrial free wall, but no other cardiac chamber compression. Pulse Doppler study of left ventricular (LV) and right ventricular (RV) inflow tracts fail to demonstrate significant respiratory variation to suggest cardiac compression (no Doppler sign of increased ventricular interdependence). There was no pendular swinging of the heart. A preliminary report of this study was related to Dr. Olivo and Dr. Sharpe. The above features would not be consistent with decompensated cardiac compression, especially considering the patient is hypertensive. The diagnosis of cardiac tamponade is a clinical one with crucial feature being pulses paradox Greater than 10-12 mmHg. Close monitoring would still be advised. CXR: There is cardiomegaly as described above. It should be stated that CT of the chest of 01/27/2021 showed a pericardial effusion. The degree of an effusion cannot be accurately assessed by plain radiography. If clinically relevant follow-up with chest CT so it can be compared to the prior chest CT. There is evidence of mild interstitial edema. Bilateral mammogram: F/u results MICROBIOLOGY: Please see below. ASSESSMENT/PLAN 35F with obestiy presents because of a two days history of fever associated with chest pain admitted for presumed diagnosis pericarditis until proven otherwise. She will undergo medical workup and management. Pericarditis, likely viral -Fever, tachycardia, abnormal echo above -Tests above -Discussed with both CT surgery and cardiology (Dr. Charles) -F/u RA, DISHA, inflammatory markers -C/w colchicine, NSAIDs. Will need repeat echocardiogram in 1-2 days prior to discharge per cardiology to see if improvement. 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 -No surgical intervention needed. -Tele Left lower pole solid thyroid nodule -US above -TSH wnl -US guided FNA recommended as o/p ? Right breast mass -not noted on CT results; however, seen by CT surgery on -Recommending mammogram; however, unable to do in hospital. -Will need to be done as o/p test DVT prophylaxis -heparin DISPOSITION: C/w treatment above. D/c home when medically improved. VS, I&O, 24H, Fishbone Vital Signs/I&O Vital Signs Date Time Temp Pulse Resp B/P (MAP) Pulse Ox O2 Delivery O2 Flow Rate FiO2 01/28/21 16:00 98.0 107 18 131/80 (97) 100 Room Air I&O- Last 24 Hours up to 6 AM 01/28/21 06:00 Intake Total 1330 ml Output Total 575 ml Balance 755 ml Laboratory Data 24H LABS Laboratory Tests 2 01/27/21 18:30: Lactic Acid Level 0.9 01/27/21 21:07: Troponin I < 0.02 01/28/21 00:32: Troponin I < 0.02 01/28/21 05:29: Troponin I < 0.02, Anion Gap 9, Glomerular Filtration Rate > 60.0, Calcium Level 7.9L 01/28/21 05:30: Immature Granulocyte % (Auto) 0.6, Neutrophils (%) (Auto) 75.7H, Lymphocytes (%) (Auto) 10.4L, Monocytes (%) (Auto) 11.9H, Eosinophils (%) (Auto) 1.2, Basophils (%) (Auto) 0.2, Neutrophils # (Auto) 8.2, Lymphocytes # (Auto) 1.1L, Monocytes # (Auto) 1.3H, Eosinophils # (Auto) 0.1, Basophils # (Auto) 0.0, Nucleated Red Blood Cells % (auto) 0.0 01/28/21 05:57: Urine Color BEATRIZ, Urine Appearance CLOUDYH, Urine pH 5.0, Urine Specific [place] 1.055, Urine Protein 2+H, Urine Glucose (UA) NEGATIVE, Urine Ketones 1+H, Urine Blood NEGATIVE, Urine Nitrite NEGATIVE, Urine Bilirubin 1+H, Urine Urobilinogen 4.0H, Urine Leukocyte Esterase NEGATIVE, Urine WBC (Auto) 2, Urine RBC (Auto) 7H, Urine Hyaline Casts (Auto) 0, Urine Bacteria (Auto) 1+H, Urine S quamous Epithelial Cells 8, Urine Mucus (Auto) SMALL, Urine Sperm (Auto) , Urine Opiates Screen POSITIVEH, Urine Methadone Screen NEGATIVE, Urine Barbiturates Screen NEGATIVE, Urine Phencyclidine Screen NEGATIVE, Urine Amphetamines Screen NEGATIVE, Urine Benzodiazepines Screen NEGATIVE, Urine Cocaine Metabolite Screen NEGATIVE, Urine Cannabinoids Screen NEGATIVE 01/28/21 08:32: Troponin I < 0.02, Vancomycin Level Trough 13.2 CBC/BMP Laboratory Tests 01/28/21 05:29 01/28/21 05:30 Microbiology Microbiology 01/27/21 Blood Culture, Received Pending 01/27/21 Blood Culture, Received Pending Mary Blanco MD Jan 28, 2021 17:58
[2021-01-28] MEDS ORDERED: cefTRIAXone SOD 2 GM in D5W MINI-BAG PLUS 50 ML IV SCH (18:00)
--- NOTE | 2021-01-28 18:21 | ECGEPIP ---
[facility] - ED Test Date: 2021-01-27 Pat Name: EAN TRISTAN Department: Room: [place] [address] Gender: Female Analytical Tech: ASAD : 1985 Requested By: Margo Wood Order Number: [id number] Reading MD: Margo Wood Measurements Intervals [place] Rate: 123 P: 38 MS: 122 QRS: 23 QRSD: 84 T: 25 QT: 298 QTc: 426 Interpretive Statements Sinus tachycardia NSTTW abnormalities increased rate 01/27/21 Electronically Signed on 01-28-2021 18:21:01 EDT by Margo Wood
--- NOTE | 2021-01-28 21:06 | ECGEPIP ---
[facility] Test Date: 2021-01-28 Pat Name: EAN TRISTAN Department: Room: [place] [address] Gender: Female Wage Analyst: Elma Gross RN : 1985 Requested By: NICKI Hoffman Order Number: [id number] Reading MD: Bryant Ratliff Measurements Intervals [place] Rate: 101 P: 43 RI: 124 QRS: 34 QRSD: 86 T: 31 QT: 338 QTc: 438 Interpretive Statements Sinus tachycardia Compared to prior tracings(2) in the system. No remarkable changes but now slower heart rate Electronically Signed on 01-28-2021 21:06:26 EDT by Bryant Ratliff
--- NOTE | 2021-01-28 21:10 | ECGEPIP ---
[facility] Test Date: 2021-01-28 Pat Name: EAN TRISTAN Department: Room: [place] [address] Gender: Female Bottle Hop: edmundo : 1985 Requested By: NICKI Hoffman Order Number: [id number] Reading MD: Bryant Ratliff Measurements Intervals [place] Rate: 109 P: 46 IA: 116 QRS: 37 QRSD: 86 T: 14 QT: 316 QTc: 425 Interpretive Statements Sinus tachycardia Nonspecific ST and T wave abnormality Compared to prior tracings(3) in the system. No remarkable changes but now slower heart rate Electronically Signed on 01-28-2021 21:10:09 EDT by Bryant Ratliff
[2021-01-29] VITALS: BP 117/73
[2021-01-29] MEDS: KETOROLAC 30 MG/ML 1ML VIAL IV SCH ×4 (03:46→21:56)
[2021-01-29 04:00] VITALS: BP 124/70
[2021-01-29 08:00] VITALS: BP 117/55
[2021-01-29 08:52] LABS: BASO % 0.1 % (0.0-1.0); EOS # 0.1 10^3/uL (0.0-0.5); EOS % 1.9 % (0.0-3.0); HEMOGLOBIN 10.3 g/dl (12.0-15.5); LYMPH # 1.1 10^3/uL (1.5-5.0); MEAN CORPUSCULAR HEMOGLOBIN 28.7 pg (27.0-33.0); MEAN CORPUSCULAR HGB CONC 32.2 g/dl (32.0-36.5); MEAN CORPUSCULAR VOLUME 89.1 fl (80.0-96.0); MONO % 13.4 % (2.0-8.0); NEUTROPHILS # 5.2 10^3/uL (1.5-8.5); NEUTROPHILS % 69.2 % (36.0-66.0); PLATELET COUNT, AUTOMATED 197 10^3/uL (150-450); RED BLOOD COUNT 3.59 10^6/uL (4.00-5.40); WHITE BLOOD COUNT 7.5 10^3/uL (4.0-10.0)
[2021-01-29] MEDS: DOCUSATE SODIUM 100MG CAPSULE PO SCH ×2 (09:00→20:24)
[2021-01-29 09:18] LABS: BLOOD UREA NITROGEN 17 MG/DL (7-18); CALCIUM LEVEL 8.4 MG/DL (8.5-10.1); CARBON DIOXIDE LEVEL 23 MEQ/L (21-32); CHLORIDE LEVEL 111 MEQ/L (98-107); CREATININE FOR GFR 0.62 MG/DL (0.55-1.30); GLOMERULAR FILTRATION RATE > 60.0 (>60); GLUCOSE, FASTING 101 MG/DL (70-100); POTASSIUM SERUM 4.4 MEQ/L (3.5-5.1); SODIUM LEVEL 139 MEQ/L (136-145)
[2021-01-29] MEDS: MOM 30ML SUSPENSION UDC PO SCH (09:35)
[2021-01-29] MEDS: HEPARIN SOD (PORCINE) 5000UNITS/ML 1ML VIAL/SYRINGE SC SCH ×2 (09:35→20:25)
[2021-01-29] MEDS: PANTOPRAZOLE 40MG TAB (PROTONIX) PO SCH (09:35)
[2021-01-29] MEDS: COLCHICINE 0.6 MG TABLET PO SCH (09:36)
--- NOTE | 2021-01-29 10:10 | REP ---
INDICATION: pericardial effusion COMPARISON: 01/28/2021. TECHNIQUE: PA/Lateral FINDINGS: Prominent cardiac silhouette is stable. The mediastinal silhouette is stable. There is slight blunting of the left costophrenic angle which may represent a small left pleural effusion. The visualized osseous structures are intact. The visualized lung blackwell appear clear. IMPRESSION: Stable exam. <Electronically signed by Teo Jon > 01/29/21 1004
[2021-01-29 12:00] VITALS: BP 144/86
[2021-01-29 13:07] LABS: ANTINUCLEAR ANTIBODIES DIRECT Negative (Negative)
--- NOTE | 2021-01-29 14:15 | IPN ---
PROGRESS NOTE DATE: 01/29/2021 SUBJECTIVE: Ms. French's pain has now disappeared on anti-inflammatories including Toradol and Colchicine. Her vital signs shows a T-max of 98.9 with a heart rate that ranges between 79 and 92 and is sinus rhythm, respiratory rate of 17 to 19 without the use of accessory muscles who is 99 to 98% saturated on room air. His blood pressure is ranging between 124/70 to 117/55. Her intake and output over the past 24 hours has been recorded as 2685 in and 575 out for a positivity of 2100 ml. OBJECTIVE: Her lungs show normal vesicular sounds without wheezes, rhonchi or rales. Percussion is full to the diaphragm. Cardiac exam is without murmurs, clicks or gallops. I may be hearing although I could also be imaging a very faint pericardial friction rub at the left sternal border. I cannot feel her PMI, S1 and S2 are normal. Abdomen is soft and nontender. Bowel sounds are positive. There is no hepatomegaly. No CVA tenderness that I can appreciate through her obesity. Extremities show pretibial edema. No calf tenderness. No differential swelling of the upper extremities. Skin is warm, dry and perfused without cyanosis or mottling including that of nailbeds and knees. Neck is supple. There is no jugular venous distention. No subcutaneous emphysema. Trachea is midline. Mouth shows the mucous membranes to pink and moist. Lips and commissures with no lesions. There is no thrush. Eyes shows the pupils to be equal and reactive. Extraocular motions are intact. Sclera are nonicteric. Neurologic: Cranial nerves II-XII intact. Normal gross motor, gross sensation intact. Gait is not tested. Psychiatric shows her to be awake, alert and oriented x3 with appropriate mood and affect and conversational. Her white count today is 7.5 with a hemoglobin and hematocrit of 10.3 and 32.0 respectively and a platelet count of 197,000. Differential shows 69% neutrophils, 15% lymphocytes, 13% monocytes. There are no immature forms or toxic granulations. Electrolytes are essentially normal with a BUN and creatinine of 17 and 0.62, glucose of 101 and a calcium of 8.4. Her chest x-ray shows her lung fully expanded to the chest wall. The heart contour is not changed. Costophrenic angles are sharp and there are no infiltrates. I did not comment on her EKG done yesterday but there are no ST segment changes consistent with her diffuse pericarditis. She is in normal sinus rhythm. She was found to have a calcified thyroid nodule with one large calcification in the left thyroid lobe which I missed yesterday on CT scan. Ultrasound confirms the thyroid nodule. It does not contain microcalcifications. IMPRESSION: 1. Pericarditis, probably going to be a viral origin by exclusion. 2. Thyroid nodule. 3. Dominant breast mass and/or tissue in the right breast above the nipple. 4. Obesity. PLAN/DISCUSSION: She is getting better on the Colchicine and the NSAIDs and the Toradol. I would have no objection to her leaving in the next 24 hours. I would get an echocardiogram tomorrow before she leaves to make sure the pericardial effusion is not any worse. Part of the differential diagnosis of the pericardial effusion is pulmonary hypertension. She has estimated pulmonary systolic of 54. She tells me she has already been tested for sleep apnea. That will need to be reconfirmed. She is not a smoker. There is no reason to think that this is secondary to COPD. I would like to have her breast mass worked up either here or in [place] where she is going in a week. She tells me that her 's transfer date cannot be changed as I would feel better if she would stay in town for the next two weeks. Nonetheless, we will arrange for her to be followed up with Cardiology just before she leaves and then continue follow-up at [facility] in [place].
[2021-01-29 16:00] VITALS: BP 148/82
--- NOTE | 2021-01-29 16:21 | IPNPDOC ---
Text Note Date of Service The patient was seen on 01/29/21. NOTE SUBJECTIVE: -Feels much better. Now afebrile, tachycardia has resolved, is sitting up in chair, conversational, curious to discuss her results and plan as she has to travel very soon to relocate to [place]. At best is will to follow up with cardiology in the outpatient before the weekend and will have PCP help facilitate transfer of care to [place] as she is aware that she needs thyroid, breast and cardiac follow up. OBJECTIVE Vitals: see below Constitutional: Awake and alert, in no apparent distress, obese ENT: Sclera are clear. Mucosa is moist. Respiratory: Lungs CTA bilaterally. No respiratory distress. No use of accessory muscles. Cardiovascular: RRR, no noted murmurs Gastrointestinal: Abdomen is soft, non distended, non tender, BS present. Musculoskeletal: No lower extremity edema. RUE 5/5, LUE 5/5, BLE 5/5 Neurologic: No focal neurological deficit. Mental Status: A&O x3, normal affect LABORATORY DATA: Reviewed IMAGING: Thyroid US: Solid nodule containing macro calcifications in the lower pole left lobe of thyroid. Ultrasound-guided FNA is recommended. Echocardiogram 01/27/21: Sinus tachycardia without intraventricular conduction disturbance. Somewhat challenging study in light of the patient's body habitus, but diagnostically useful information was still obtained. M-mode and 2-dimensional cardiography was performed with pulse, continuous wave, color flow and tissue Doppler studies. At least mildly dilated left ventricle with normal wall thickness and slight degree of global hypokinesis. At least mildly dilated left atrium with prolonged early mitral deceleration time, but normal filling pattern and current estimated mean left atrial pressure upper limits of normal. Mildly dilated right heart chambers with normal right ventricular free wall motion and Doppler sign of at least moderate pulmonary hypertension. Moderately dilated inferior vena cava (IVC) with absent respiratory collapse in keeping with an elevated central venous pressure. Normal aortic dimensions. Normal appearing and functioning valvular structures. No apparent intracardiac mass. Moderate size pericardial effusion measuring 0.8 cm with some diastolic inversion of the right atrial free wall, but no other cardiac chamber compression. Pulse Doppler study of left ventricular (LV) and right ventricular (RV) inflow tracts fail to demonstrate significant respiratory variation to suggest cardiac compression (no Doppler sign of increased ventricular interdependence). There was no pendular swinging of the heart. A preliminary report of this study was related to Dr. Olivo and Dr. Sharpe. The above features would not be consistent with decompensated cardiac compression, especially considering the patient is hypertensive. The diagnosis of cardiac tamponade is a clinical one with crucial feature being pulses paradox Greater than 10-12 mmHg. Close monitoring would still be advised. CXR: There is cardiomegaly as described above. It should be stated that CT of the chest of 01/27/2021 showed a pericardial effusion. The degree of an effusion cannot be accurately assessed by plain radiography. If clinically relevant follow-up with chest CT so it can be compared to the prior chest CT. There is evidence of mild interstitial edema. Bilateral mammogram: F/u results MICROBIOLOGY: Please see below. ASSESSMENT/PLAN 35 yo W with obesity who presented with 2d of fever associated with chest pain and was admitted for pericarditis with a small pericardial effusion. Pericarditis, likely viral -Fever, tachycardia, abnormal echo above -Discussed with both thoracic surgery and cardiology (Dr. Charles) -Rheumatoid factor was negative. F/u DISHA, inflammatory markers -C/w colchicine, NSAIDs. 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 -No surgical intervention needed. -Tele Left lower pole solid thyroid nodule -US above -TSH wnl -US guided FNA recommended as o/p ? Right breast mass -not noted on CT results; however, seen by CT surgery on -Recommending mammogram; however, unable to do in hospital and given that she is under 45, USPSTF recommends breast US. Will order now DVT prophylaxis -heparin DISPOSITION: C/w treatment above. D/c home tomorrow likely. VS,Fishbone, I+O VS, Fishbone, I+O Laboratory Tests 01/29/21 08:40 Vital Signs Date Time Temp Pulse Resp B/P (MAP) Pulse Ox O2 Delivery O2 Flow Rate FiO2 01/29/21 12:00 97.4 96 18 144/86 (105) 97 01/29/21 08:00 Room Air I&O- Last 24 Hours up to 6 AM 01/29/21 06:00 Intake Total 1995 ml Output Total 250 ml Balance 1745 ml DUNIA GARCIA MD Jan 29, 2021 16:21
[2021-01-29 20:00] VITALS: BP 138/78
[2021-01-30] VITALS: BP 136/63
[2021-01-30] MEDS: KETOROLAC 30 MG/ML 1ML VIAL IV SCH ×2 (03:43→09:46)
[2021-01-30 04:00] VITALS: BP 125/80
[2021-01-30 04:54] LABS: BASO % 0.3 % (0.0-1.0); EOS # 0.2 10^3/uL (0.0-0.5); EOS % 2.6 % (0.0-3.0); HEMATOCRIT 33.1 % (36.0-47.0); HEMOGLOBIN 10.5 g/dl (12.0-15.5); LYMPH # 1.7 10^3/uL (1.5-5.0); LYMPH % 28.4 % (24.0-44.0); MEAN CORPUSCULAR HEMOGLOBIN 28.3 pg (27.0-33.0); MEAN CORPUSCULAR HGB CONC 31.7 g/dl (32.0-36.5); MEAN CORPUSCULAR VOLUME 89.2 fl (80.0-96.0); MONO # 0.8 10^3/uL (0.0-0.8); MONO % 13.1 % (2.0-8.0); NEUTROPHILS # 3.2 10^3/uL (1.5-8.5); NEUTROPHILS % 55.1 % (36.0-66.0); PLATELET COUNT, AUTOMATED 199 10^3/uL (150-450); RED BLOOD COUNT 3.71 10^6/uL (4.00-5.40); WHITE BLOOD COUNT 5.9 10^3/uL (4.0-10.0)
[2021-01-30 05:12] LABS: BLOOD UREA NITROGEN 21 MG/DL (7-18); CARBON DIOXIDE LEVEL 26 MEQ/L (21-32); CHLORIDE LEVEL 111 MEQ/L (98-107); CREATININE FOR GFR 0.61 MG/DL (0.55-1.30); GLOMERULAR FILTRATION RATE > 60.0 (>60); GLUCOSE, FASTING 85 MG/DL (70-100); POTASSIUM SERUM 4.4 MEQ/L (3.5-5.1); SODIUM LEVEL 142 MEQ/L (136-145)
[2021-01-30 07:31] VITALS: BP 154/76
[2021-01-30] MEDS: DOCUSATE SODIUM 100MG CAPSULE PO SCH (09:45)
[2021-01-30] MEDS: PANTOPRAZOLE 40MG TAB (PROTONIX) PO SCH (09:46)
[2021-01-30] MEDS: MOM 30ML SUSPENSION UDC PO SCH (09:46)
[2021-01-30] MEDS: COLCHICINE 0.6 MG TABLET PO SCH (09:47)
[2021-01-30] MEDS: HEPARIN SOD (PORCINE) 5000UNITS/ML 1ML VIAL/SYRINGE SC SCH (09:47)
--- NOTE | 2021-01-30 09:55 | IPN ---
PROGRESS NOTE DATE: 01/30/2021 SUBJECTIVE: Ms. French is doing fairly well today but she is complaining now of swelling in her left arm. Her chest pain has resolved. She is breathing well and is not short of breath. Her vital signs shows a T-max of 98.0 with a heart rate that ranges between 65 and 85 and is sinus rhythm, respiratory rate of 17 to 18 without the use of accessory muscles, who is 96 to 97% saturated on room air. Blood pressure is ranging between 154/76 to 125/80. Her intake and output over the past 24 hours has been recorded as 1390 in and 650 out for a positivity of 740 ml. She weighs 147.3 kilos today compared to 143.1 kilos yesterday. PHYSICAL EXAMINATION: Her lungs show equal breath sounds on either side with normal vesicular sounds. Percussion note is full to the diaphragm. Cardiac exam does indeed show the faint pericardial friction rub at the mid left sternal border. S1 and S2 are normal. I cannot feel her PMI. She has a regular rate and rhythm. Abdomen is tender to very deep palpation in the epigastrium. Bowel sounds are positive. There is no hepatomegaly that I can feel through her obesity. No CVA tenderness. Extremities show pretibial edema. No calf tenderness. Her left extremity is slightly more swollen all the way down to her fingers than the right upper extremity. Skin is warm, dry and perfused without cyanosis or mottling including that of nailbeds and knees. Neck is supple. There is no jugular venous distention. No subcutaneous emphysema. Trachea is midline. Mouth shows the mucous membranes to pink and moist. Lips and commissures with no lesions. There is no thrush. Eyes shows the pupils to be equal and reactive. Extraocular motions are intact. Sclera are nonicteric. Neurologic: Cranial nerves II-XII intact. Normal gross motor, gross sensation intact. Gait is not tested. Psychiatric shows her to be awake, alert and oriented x3 with appropriate mood and affect and conversational. LABORATORY DATA: Her white count today is 5.9 with a hemoglobin and hematocrit of 10.5 and 33.1, unchanged from yesterday with a platelet count of 199,000 and stable. Differential shows 55% neutrophils, 28% lymphocytes, 13 monocytes. There are no immature forms, no toxic granulations. Electrolytes are essentially normal with a BUN and creatinine of 5 and 21 respectively. Calcium is 8.0 with a glucose of 85. Her chest x-ray is still pending. IMPRESSION: 1. Pericardial effusion. 2. Probable viral pericarditis. 3. Thyroid nodule. 4. Dominant breast mass and/or tissue in right breast above the nipple. 5. Obesity. 6. Differential swelling of her left arm. PLAN/DISCUSSION: I will repeat her echo to see if the effusion is stable. I am concerned that she is going to be leaving town in the next couple of days to travel to [place] and I want to make sure that effusion is indeed stable even though it has been three days since her last echo. I will also obtain an ultrasound of her left upper extremity. She should continue on the Colchicine for 30 days. Her DISHA is negative as is her rheumatoid factor so I do not think this is autoimmune.
--- NOTE | 2021-01-30 10:44 | REP ---
INDICATION: differential swelling right/left. COMPARISON: None. TECHNIQUE: Multiple ultrasonographic images of the deep venous structures of the left upper extremity were obtained to rule out deep venous thrombosis. The contralateral subclavian vein was also interrogated in a limited fashion for comparison. FINDINGS: There is no abnormal echogenic material seen in any of the visualized deep venous structures of the left upper extremity. Coaptation where applicable is appropriate throughout. IMPRESSION: Negative exam. <Electronically signed by Dar Burnham > 01/30/21 1045
--- NOTE | 2021-01-30 10:56 | REP ---
INDICATION: pericardial effusion. COMPARISON: Multiple the latest yesterday at 7:25 a.m. TECHNIQUE: PA and lateral FINDINGS: There is global cardiomegaly status quo. Subtle left CP angle blunting seen previously has resolved. No acute patchy parenchymal opacities or pleural effusions have developed. There is no significant change in the osseous structures. IMPRESSION: Cardiomegaly status quo and resolved left CP angle blunting. There is no evidence of acute cardiopulmonary disease. <Electronically signed by Dar Burnham > 01/30/21 105
[2021-01-30] MEDS ORDERED: IBUP-1114 PO (11:07)
[2021-01-30] MEDS ORDERED: PANT40TA29 PO (11:07)
[2021-01-30] MEDS ORDERED: COLC0.6T47 PO (11:07)
--- NOTE | 2021-01-30 13:07 | DS.PDOC ---
Discharge Summary General Date of Admission Jan 27, 2021 at 20:01 Date of Discharge 01/30/2021 Attending Physician: DUNIA GARCIA MD Discharge Summary PROCEDURES PERFORMED DURING STAY: None ADMITTING DIAGNOSES: Pericarditis DISCHARGE DIAGNOSES: Acute likely viral pericarditis Pericardial effusion Morbid obesity Incidentally found R breast mass, that requires outpatient mammo/PCP follow up Incidentally found L thyroid mass/nodule that requires outpatient US guided FNA per PCP COMPLICATIONS/CHIEF COMPLAINT: Pericardial Effusion. HISTORY OF PRESENT ILLNESS: 35F with obestiy who presented reporting a two day history of fever associated with chest pain. She reported that her fever was 101 at home. She's tried ibuprofen and Tylenol which didn't help. Chest pain was persistent substernal and radiated to her back. She's had similar pain in the past which she believes was inflammation helped with ibuprofen and rest. This however felt different, it worsened by deep breaths and alleviated by change in position, leaning backwards sometimes making it worse. She denied associated palpitations, denies any shortness of breath except sometimes when she lays down. Endorsed fatigue. Denied any rash, night sweats, nausea, vomiting, hematuria. Denied having any heart surgery, denied any IV drug use any point in the past. HOSPITAL COURSE: CTA chest initially suggestive of large pericardial effusion, that was reviewed by thoracic surgery and Dr Sharpe thought it was moderate. Stat echo was ordered in the ED and read by Dr Kennedy who confirmed a moderate effusion with no evidence of cardiac tamponade and she was admitted to the PCU with presumed diagnosis of pericarditis. BCx were ultimately negative, respiratory panel was negative, DISHA was negative as was rheumatoid factor. She was started on colchicine and IV Ketoralac PRN with improvement in her symptoms. She had a f/u TTE on 01/30. Of note, Ms. 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 I have prescribed her 1 month supply of colchicine that she will remain on for at least a few months, and short course of PRN ibuprofen, as well as GI ppx with protonix daily. DISCHARGE MEDICATIONS: Please see below. ALLERGIES: Please see below. PHYSICAL EXAMINATION ON DISCHARGE: VITAL SIGNS: Please see below. PHYSICAL EXAMINATION: Constitutional: Awake and alert, in no apparent distress ENT: Sclera are clear. Mucosa is moist. Respiratory: Lungs CTA bilaterally. No respiratory distress. No use of ac cessory muscles. Cardiovascular: Rate 118 on monitor. Sounds regular. S1 and S2 are normal, no obvious murmur. EKG showing sinus tachycardia. Gastrointestinal: Abdomen is soft, non distended, non tender, BS present. Musculoskeletal: No lower extremity edema. RUE 5/5, LUE 5/5, BLE 5/5 Neurologic: No focal neurological deficit. Mental Status: A&O x3, normal affect Skin: Warm, dry, no petechiae, no splinter hemorrhages, no Janeway lesions or Osler nodes. LABORATORY DATA: Please see below. IMAGING: Thyroid US: Solid nodule containing macro calcifications in the lower pole left lobe of thyroid. Ultrasound-guided FNA is recommended. Echocardiogram 01/27/21: Sinus tachycardia without intraventricular conduction disturbance. Somewhat challenging study in light of the patient's body habitus, but diagnostically useful information was still obtained. M-mode and 2-dimensional cardiography was performed with pulse, continuous wave, color flow and tissue Doppler studies. At least mildly dilated left ventricle with normal wall thickness and slight degree of global hypokinesis. At least mildly dilated left atrium with prolonged early mitral deceleration time, but normal filling pattern and current estimated mean left atrial pressure upper limits of normal. Mildly dilated right heart chambers with normal right ventricular free wall motion and Doppler sign of at least moderate pulmonary hypertension. Moderately dilated inferior vena cava (IVC) with absent respiratory collapse in keeping with an elevated central venous pressure. Normal aortic dimensions. Normal appearing and functioning valvular structures. No apparent intracardiac mass. Moderate size pericardial effusion measuring 0.8 cm with some diastolic inversion of the right atrial free wall, but no other cardiac chamber compression. Pulse Doppler study of left ventricular (LV) and right ventricular (RV) inflow tracts fail to demonstrate significant respiratory variation to suggest cardiac compression (no Doppler sign of increased ventricular interdependence). There was no pendular swinging of the heart. A preliminary report of this study was related to Dr. Olivo and Dr. Sharpe. The above features would not be consistent with decompensated cardiac compression, especially considering the patient is hypertensive. The diagnosis of cardiac tamponade is a clinical one with crucial feature being pulses paradox Greater than 10-12 mmHg. Close monitoring would still be advised. CXR: There is cardiomegaly as described above. It should be stated that CT of the chest of 01/27/2021 showed a pericardial effusion. The degree of an effusion cannot be accurately assessed by plain radiography. If clinically relevant follow-up with chest CT so it can be compared to the prior chest CT. There is evidence of mild interstitial edema. PROGNOSIS: Good ACTIVITY: As tolerated DIET: regular DISCHARGE PLAN: Home with prompt PCP and cardiology follow up within 5d. Continue colchine as prescribed. PRN ibuprofen and daily pantoprazole. DISPOSITION: Home DISCHARGE INSTRUCTIONS: Home with prompt PCP and cardiology follow up within 5d. Continue colchine as prescribed. PRN ibuprofen and daily pantoprazole. ITEMS TO FOLLOWUP ON ON OUTPATIENT: Pericarditis Pericardial effusion Breast mass Thyroid nodule Morbid obesity DISCHARGE CONDITION: Stable TIME SPENT ON DISCHARGE: 46 minutes. Vital Signs/I&Os Vital Signs Date Time Temp Pulse Resp B/P (MAP) Pulse Ox O2 Delivery O2 Flow Rate FiO2 01/30/21 07:31 98.0 85 18 154/76 (102) 97 Room Air I&O- Last 24 Hours up to 6 AM 01/30/21 06:00 Intake Total 1390 ml Output Total 650 ml Balance 740 ml Laboratory Data Labs 24H Laboratory Tests 2 01/30/21 04:27: Immature Granulocyte % (Auto) 0.5, Neutrophils (%) (Auto) 55.1, Lymphocytes (%) (Auto) 28.4, Monocytes (%) (Auto) 13.1H, Eosinophils (%) (Auto) 2.6, Basophils (%) (Auto) 0.3, Neutrophils # (Auto) 3.2, Lymphocytes # (Auto) 1.7, Monocytes # (Auto) 0.8, Eosinophils # (Auto) 0.2, Basophils # (Auto) 0.0, Nucleated Red Blood Cells % (auto) 0.0, Anion Gap 5L, Glomerular Filtration Rate > 60.0, Calcium Level 8.0L CBC/BMP Laboratory Tests 01/30/21 04:27 Microbiology Microbiology 01/27/21 Blood Culture - Preliminary, Resulted No Growth after 48 hours. All Specime... 01/27/21 Blood Culture - Preliminary, Resulted No Growth after 48 hours. All Specime... Discharge Medications Scheduled Calcium Carbonate (Calcium) 600 Mg Tablet, 600 MG PO DAILY, (Reported) Cholecalciferol (Vitamin D3) (Vitamin D3) 1,000 Unit Tablet, 1,000 UNITS PO DAILY, (Reported) Colchicine (Colchicine) 0.6 Mg Tablet, 0.6 MG PO DAILY Cyanocobalamin (Vitamin B-12) (Vitamin B-12) 1,000 Mcg Capsule, 1,000 MCG PO DAILY, (Reported) Pantoprazole Sodium (Pantoprazole Sodium) 40 Mg Tablet.dr, 40 MG PO DAILY Scheduled PRN Ibuprofen (Ibuprofen) 400 Mg Tablet, 1 TAB PO TIDP PRN for pain Allergies Coded Allergies: Penicillins (Verified Allergy, Unknown, hives, 01/27/21) TAPE (Verified Allergy, Unknown, SILK TAPE, 04/25/18) DUNIA GARCIA MD Jan 30, 2021 11:26
--- NOTE | 2021-01-31 10:27 | ECHO ---
ECHOCARDIOGRAM DATE OF PROCEDURE: 01/28/2021 Age: 35 Gender: Female Height: 70 inches Weight: 324 pounds Body Surface Area 2.56 sq m Inpatient: [facility], room 3224 REFERRING PHYSICIAN: Dr. Panchito Sharpe INDICATION: Pericardial effusion MEASUREMENTS: 2D Measurements: RV - 4.5 cm LV - 5.2 cm Septum 1.3 cm Posterior wall 1.3 cm Aortic root 3.1 cm LA - 4.4 cm LVEF 59% Doppler Measurements: AV - 1.52 m/s LVOT - 0.97 m/s LVOT diameter 2.2 cm MV-E 123, A 82, E/A ratio 1.5 Early mitral deceleration time 173 msec E prime medial 7.5, A prime medial 6.3, E prime lateral 13.4 Average E/E prime ratio 11.8 PCWP 16.5 mmHg PV 0.82 m/s Pulmonary artery acceleration time 120 msec RVSP 45 mmHg IVC - 2.6 cm COMMENTS: Normal sinus rhythm without intraventricular conduction disturbance. Technically difficult study in light of the patient's body habitus but diagnostically useful information was still obtained. Mild symmetrical left ventricular hypertrophy with currently normal wall motion. Mildly dilated left atrium with grade 2 left ventricular (LV) diastolic dysfunction with current estimated mean left atrial pressure upper limits of normal. At least mild to moderately dilated right heart chambers with normal right ventricular free wall motion and Doppler evidence of at least moderate pulmonary hypertension. Moderately dilated inferior vena cava (IVC) with reduced respiratory collapse in keeping with an elevated central venous pressure. Normal aortic dimensions. Normal-appearing and functioning aortic valve. Normal-appearing mitral valve with normal leaflet excursion and only very mild insufficiency. Normal-appearing tricuspid valve with moderate insufficiency. No apparent intracardiac mass. There appears to have been a decrease in the amount of pericardial fluid with posterior depth measuring 0.7 cm and anterior depth 0.8 cm. The right atrial free wall no longer collapses. There is certainly no respiratory variation of right ventricle (RV) and left ventricle (LV) inflow tract patterns.
== END 2021-01-30 13:52 | disposition home or self-care (01) | DRG 315 ==
LOC: M ED 14:35 → M ED INP 20:01 → ENRESERV 20:38 → M PCU 20:58
PROVIDERS: ADMIT Family Medicine; ATTEND Internal Medicine
DX: I30.9 Acute pericarditis, unspecified (principal); J90 Pleural effusion, not elsewhere classified; E66.01 Morbid (severe) obesity due to excess calories; N63.10 Unspecified lump in the right breast, unspecified quadrant; E04.1 Nontoxic single thyroid nodule; Z20.822 Contact with and (suspected) exposure to COVID-19; Z88.0 Allergy status to penicillin; Z91.040 Latex allergy status